=== PATIENT | male | born 1990 | race African-American/Black ===

== ENCOUNTER 2019-04-01 | Emergency (ER) | payer OTHER ==
[2019-04-01 11:10] LABS: HEMATOCRIT 44.8 % (39.0-50.0); HEMOGLOBIN 14.3 g/dl (14.0-18.0); IMMATURE GRANULOCYTES 0.2 % (0.0-5.0); MEAN CORPUSCULAR HGB 27.2 pG CALC (26.0-32.0); MEAN CORPUSCULAR HGB CONC 31.9 g/L CALC (32.0-36.0); NEUT# 3.15 thou/uL (1.82-7.42); RED BLOOD COUNT 5.26 mill/uL (4.70-6.10); RED CELL DISTRI WIDTH 14.4 % (11.5-15.5)
[2019-04-01 11:11] LABS: MEAN CELL VOLUME 85.2 fL CALC (80.0-100.0)
[2019-04-01 11:28] LABS: ALBUMIN 4.2 g/dL (3.2-5.0); ANION GAP 13 (6-22 (CALC)); BILIRUBIN, TOTAL 0.3 mg/dL (0.0-1.4); BUN 13 mg/dL (9-20); BUN/CREATININE RATIO 12 (12-20 (CALC)); CARBON DIOXIDE 27 mmol/l (22-30); CHLORIDE 104 mmol/l (95-108); CREATININE 1.1 mg/dL (0.7-1.3); GFR > 60 ML/MIN (>=60 (CALC)); GFR FOR AFR.AMER. > 60 ML/MIN (>=60 (CALC)); POTASSIUM 4.5 mmol/l (3.5-5.1); SGOT/AST 23 u/l (17-59); SODIUM 139 mmol/l (137-146); TOTAL PROTEIN 8.2 g/dL (6.3-8.2)
[2019-04-01 11:36] LABS: ALKALINE PHOSPHATASE 71 u/l (38-126)
[2019-04-01] MEDS ORDERED: LOMOTIL2.5 MG PO (12:22)
== END 2019-04-01 12:52 | disposition home or self-care (01) ==
PROVIDERS: Family Medicine
DX: A08.4 Viral intestinal infection, unspecified (principal)

== ENCOUNTER 2020-01-12 20:09 | Emergency (ER) | payer OTHER ==
[~2020-01-12 20:09] MED LIST: LOMOTIL2.5 MG PO
== END 2020-01-12 21:00 | disposition left against medical advice (07) | DRG 951 ==
LOC: ED 20:09 → LWOBS 21:00
DX: Z53.21 Procedure and treatment not carried out due to patient leaving prior to being seen by health care provider (principal)

== ENCOUNTER 2020-06-23 12:10 | Emergency (ER) | payer OTHER ==
[2020-06-23] MEDS ORDERED: FLEXERIL5 MG PO (13:18)
[2020-06-23] MEDS ORDERED: MOTRIN800 MG PO (13:18)
[2020-06-23 13:28] VITALS: BP 176/95
== END 2020-06-23 13:35 | disposition home or self-care (01) ==
LOC: ED 12:10
DX: S16.1XXA Strain of muscle, fascia and tendon at neck level, initial encounter (principal); X58.XXXA Exposure to other specified factors, initial encounter

== ENCOUNTER 2022-07-05 19:13 | Emergency (ER) | payer OTHER ==
[~2022-07-05 19:13] MED LIST changes: +FLEXERIL5 MG PO; +MOTRIN800 MG PO
== END 2022-07-05 19:27 | disposition left against medical advice (07) | DRG 951 ==
LOC: ED 19:13 → LWOBS 19:27
DX: Z53.21 Procedure and treatment not carried out due to patient leaving prior to being seen by health care provider (principal)

== ENCOUNTER 2022-07-05 22:04 | Emergency (ER) | payer OTHER | END 2022-07-05 22:49 | disposition left against medical advice (07) | DRG 951 | LOC: ED 22:04 → LWOBS 22:15 | DX: Z53.21 Procedure and treatment not carried out due to patient leaving prior to being seen by health care provider (principal) ==